=== PATIENT | female | born 1980 | race Caucasian/White ===

== ENCOUNTER 2018-08-22 05:51 | Inpatient (IN) | payer BC, OTHER ==
[~2018-08-22] VITALS: Ht 162.6 cm; Wt 83.4 kg
[2018-08-22] MEDS ORDERED: Verotin-Gr Cap1 EACH PO (06:18)
[2018-08-22] MEDS ORDERED: VITAMIN D250 MCG PO (06:20)
[2018-08-22] MEDS ORDERED: Vitamin C100 M1 PO (06:20)
[2018-08-22] MEDS ORDERED: Prilosec Otc20 MG PO (06:21)
[2018-08-22 08:40] LABS: BASOPHILS ABSOLUTE AUTO 0.04 K/mm3 (0.00-0.23); BASOPHILS PERCENT AUTO 0 % (0-2); EOSINOPHILS ABSOLUTE AUTO 0.14 K/mm3 (0.00-0.68); EOSINOPHILS PERCENT AUTO 1 % (0-6); Hematocrit 35.2 % (33.0-51.0); Hemoglobin 11.6 g/dL (11.5-16.0); IMMATURE GRAN ABSOLUTE AUTO 0.17 K/mm3 (0.00-0.10); IMMATURE GRAN PERCENT AUTO 1 % (0-1); LYMPHOCYTES ABSOLUTE AUTO 2.76 K/mm3 (0.84-5.20); LYMPHOCYTES PERCENT AUTO 19 % (21-46); MONOCYTES ABSOLUTE AUTO 1.02 K/mm3 (0.16-1.47); MONOCYTES PERCENT AUTO 7 % (4-13); Mean Corpuscular HGB 30.2 pg (26.0-34.0); Mean Corpuscular Volume 92 fL (80-100); Mean Platelet Volume 12.4 fL (9.1-12.4); NEUTROPHILS ABSOLUTE AUTO 10.72 K/mm3 (1.96-9.15); NEUTROPHILS PERCENT AUTO 72 % (41-73); Platelet Count 212 K/mm3 (150-400); RDW Coefficient Variation 13.4 % (11.7-14.2); RDW Standard Deviation 45.1 fL (35.1-46.3); Red Blood Cell Count 3.84 M/mm3 (3.80-5.20); White Blood Cell Count 14.85 K/mm3 (4.00-11.30)
--- NOTE | 2018-08-22 09:00 | NUR ---
ASSUMED CARE AT 0715. PT IN TUB. PT'S MIGUEL ÁNGEL AT SIDE, SUPPORTIVE AND LOVING. PT PLANS [employer], BUT AWARE OF INTERVENTIONS IF NEEDED FOR SAFETY. PLANS BRF.
--- NOTE | 2018-08-22 17:01 | NUR ---
CNM ASKED TO TURN UP PITOCIN, PT IS TACHYSYSTOLE, WILL RE-EVALUATE IN 15.
--- NOTE | 2018-08-23 05:51 | NUR ---
08/23/18 0551 Tana Whyte PT HAD GENERAL INDUCTION. EPIDURAL DOSES NOT ADEQUATE FOR PAIN RELIEF.
[2018-08-23 06:12] LABS: PCO2 Cord - Arterial 58.7 mmHg (40-50); PO2 Cord - Arterial 15.4 mmHg (16-20); pH Cord - Arterial 7.24 (7.28-7.35)
[2018-08-23 06:13] LABS: PO2 Cord - Venous 26.3 mmHg (28-32)
--- NOTE | 2018-08-23 11:15 | NUR ---
Pt continues sleeping soundly. RR even and unlabored, SO and nb asleep at bedside.
--- NOTE | 2018-08-23 13:00 | NUR ---
Report to Henry Walter RN.
--- NOTE | 2018-08-23 18:02 | NUR ---
SIVAN CARE DECLINED. NEW GOWN GIVEN.
[2018-08-24 05:23] LABS: BASOPHILS ABSOLUTE AUTO 0.02 K/mm3 (0.00-0.23); BASOPHILS PERCENT AUTO 0 % (0-2); EOSINOPHILS ABSOLUTE AUTO 0.04 K/mm3 (0.00-0.68); EOSINOPHILS PERCENT AUTO 0 % (0-6); Hematocrit 26.4 % (33.0-51.0); Hemoglobin 8.6 g/dL (11.5-16.0); IMMATURE GRAN ABSOLUTE AUTO 0.14 K/mm3 (0.00-0.10); IMMATURE GRAN PERCENT AUTO 1 % (0-1); LYMPHOCYTES ABSOLUTE AUTO 2.45 K/mm3 (0.84-5.20); LYMPHOCYTES PERCENT AUTO 14 % (21-46); MONOCYTES ABSOLUTE AUTO 1.15 K/mm3 (0.16-1.47); MONOCYTES PERCENT AUTO 7 % (4-13); Mean Corpuscular HGB 30.4 pg (26.0-34.0); Mean Corpuscular HGB Conc 32.6 g/dL (31.5-36.5); Mean Corpuscular Volume 93 fL (80-100); Mean Platelet Volume 11.5 fL (9.1-12.4); NEUTROPHILS ABSOLUTE AUTO 13.74 K/mm3 (1.96-9.15); NEUTROPHILS PERCENT AUTO 78 % (41-73); Platelet Count 178 K/mm3 (150-400); RDW Coefficient Variation 13.8 % (11.7-14.2); RDW Standard Deviation 46.9 fL (35.1-46.3); Red Blood Cell Count 2.83 M/mm3 (3.80-5.20); White Blood Cell Count 17.54 K/mm3 (4.00-11.30)
[2018-08-25 05:46] LABS: BASOPHILS ABSOLUTE AUTO 0.03 K/mm3 (0.00-0.23); BASOPHILS PERCENT AUTO 0 % (0-2); EOSINOPHILS ABSOLUTE AUTO 0.17 K/mm3 (0.00-0.68); EOSINOPHILS PERCENT AUTO 1 % (0-6); Hematocrit 24.2 % (33.0-51.0); Hemoglobin 8.1 g/dL (11.5-16.0); IMMATURE GRAN ABSOLUTE AUTO 0.11 K/mm3 (0.00-0.10); IMMATURE GRAN PERCENT AUTO 1 % (0-1); LYMPHOCYTES PERCENT AUTO 16 % (21-46); MONOCYTES ABSOLUTE AUTO 0.83 K/mm3 (0.16-1.47); MONOCYTES PERCENT AUTO 7 % (4-13); Mean Corpuscular HGB Conc 33.5 g/dL (31.5-36.5); Mean Corpuscular Volume 93 fL (80-100); Mean Platelet Volume 11.4 fL (9.1-12.4); NEUTROPHILS PERCENT AUTO 76 % (41-73); Platelet Count 170 K/mm3 (150-400); RDW Coefficient Variation 13.7 % (11.7-14.2); RDW Standard Deviation 46.5 fL (35.1-46.3); Red Blood Cell Count 2.61 M/mm3 (3.80-5.20); White Blood Cell Count 12.84 K/mm3 (4.00-11.30)
[2018-08-25] MEDS ORDERED: IBUP800 (10:57)
[2018-08-25] MEDS ORDERED: Percocet 5-3251 EACH PO (10:57)
--- NOTE | 2018-08-25 12:26 | NUR ---
PT DISCHARGED TO HOME. DISCHARGE INSTRUCTIONS GIVEN. NO QUESTIONS OR CONCERNS AT THIS TIME. PRESCRIPTION HANDED TO PT.
== END 2018-08-25 13:00 | disposition home or self-care (01) | DRG 788 ==
LOC: OBS 05:51 → BC 05:51 → OBS 06:08 → BC 06:14
PROVIDERS: Obstetrics & Gynecology; ADMIT Nurse Practitioner Obstetrics & Gynecology
PROC: 10H07YZ Insertion of Other Device into Products of Conception, Via Natural or Artificial Opening (ICD-10-PCS; 2018-08-22)
PROC: 3E0R3BZ Introduction of Anesthetic Agent into Spinal Canal, Percutaneous Approach (ICD-10-PCS; 2018-08-22)
PROC: 10D00Z1 Extraction of Products of Conception, Low, Open Approach (ICD-10-PCS; principal; 2018-08-23 07:15)
DX: O63.1 Prolonged second stage (of labor) (principal); Z3A.40 40 weeks gestation of pregnancy; Z37.0 Single live birth
CPT/HCPCS: 36415; 51702; 82803; 85025; 86850; 86900; 86901; J0290; J0690; J1100; J1170; J1885; J2001; J2210; J2370; J2405; J2590; J2704; J2765; J3010; J7120

== ENCOUNTER → 2020-06-27 | Outpatient (CLI) | payer OTHER ==
[~2020-06-27] MED LIST: IBUP800; Percocet 5-3251 EACH PO; Prilosec Otc20 MG PO; VITAMIN D250 MCG PO; Verotin-Gr Cap1 EACH PO; Vitamin C100 M1 PO
[2020-06-28 14:07] LABS: HPV 16 Negative (Negative); HPV 18 Negative (Negative); HPV OTHER HR TYPES Negative (Negative)
== END | disposition home or self-care (01) ==
LOC: LAB 10:50 → LAB SHORT 10:50
PROVIDERS: Advanced Practice Midwife
DX: Z01.419 Encounter for gynecological examination (general) (routine) without abnormal findings (principal)
CPT/HCPCS: 87624; G0123